=== PATIENT | female | born 1930 | race Caucasian/White ===

== ENCOUNTER 2017-02-24 19:38 | Emergency (ER) | payer MEDICARE, MEDICAID ==
[~2017-02-24] VITALS: Ht 152.4 cm; Wt 55.0 kg
[~2017-02-24 19:38] MED LIST: ATEN50TA
[2017-02-24] MEDS: HYDROCODONE/ACETAMINOPHEN 5/325MG TABLET PO ONE (22:21)
[2017-02-25 00:04] VITALS: BP 119/79
== END 2017-02-25 00:07 | disposition home or self-care (01) ==
LOC: ER 19:38
DX: M54.6 Pain in thoracic spine (principal); I10 Essential (primary) hypertension
CPT/HCPCS: 71010; 72070; 99284